=== PATIENT | female | born 1995 | race Caucasian/White ===

== ENCOUNTER 2016-04-09 19:14 | Emergency (ER) | payer OTHER ==
[2016-04-09 19:28] VITALS: BP 149/83
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
[2016-04-09] MEDS ORDERED: MOBIC15 M1 PO (21:22)
== END 2016-04-09 21:46 ==
LOC: ERH 19:14
DX: S16.1XXA Strain of muscle, fascia and tendon at neck level, initial encounter (principal); S09.90XA Unspecified injury of head, initial encounter; V49.40XA Driver injured in collision with unspecified motor vehicles in traffic accident, initial encounter